=== PATIENT | female | born 1955 | race Caucasian/White ===

== ENCOUNTER 2024-11-09 06:17 | Day surgery (SDC) | payer MEDICARE, SELFPAY | END 2024-11-09 09:23 | disposition home or self-care (01) | LOC: GI 06:17 | PROVIDERS: ATTENDING PHYSICIAN Internal Medicine; FAMILY PHYSICIAN Student in an Organized Health Care Education/Training Program | DX: Z12.11 Encounter for screening for malignant neoplasm of colon (principal); K57.30 Diverticulosis of large intestine without perforation or abscess without bleeding; K64.8 Other hemorrhoids; R10.13 Epigastric pain; K22.10 Ulcer of esophagus without bleeding; K21.00 Gastro-esophageal reflux disease with esophagitis, without bleeding; D12.2 Benign neoplasm of ascending colon; D12.3 Benign neoplasm of transverse colon; Z86.0100 Personal history of colon polyps, unspecified; K31.A19 Gastric intestinal metaplasia without dysplasia, unspecified site | CPT/HCPCS: 45385; 45380; 43239; 88305; 88312; 88342 ==

== ENCOUNTER → 2024-12-04 08:54 | Outpatient (REF) | payer MEDICARE, SELFPAY | LOC: WDC 08:54 | PROVIDERS: ATTENDING PHYSICIAN Student in an Organized Health Care Education/Training Program | DX: Z12.31 Encounter for screening mammogram for malignant neoplasm of breast (principal) | CPT/HCPCS: 77063; 77067 ==